=== PATIENT | female | born 1950 | race Caucasian/White ===

== ENCOUNTER → 2016-12-31 | Outpatient (CLI) | payer OTHER ==
[~2016-12-31] MED LIST: /WARF25TA OR; ACET65TA OR; ASPI81TA83 OR; CITRACAL + D3 PO; FISHCAP PO; HYDR25TA6 OR; LOPR50TA OR; METOPROLOL TARTRATE PO; OSTEOBIFLEX PO; PERC5TAB8 OR; PRAV20TA2 OR; VITAMIN D PO
--- NOTE | 2016-12-31 12:58 | REPMRS ---
Patient History The patient states she had a clinical breast exam in October 2016. Patient is postmenopausal and has history of other cancer at age 63. Family history of unknown cancer in sister, colorectal cancer in maternal grandmother at age 50 or over, and unknown cancer in brother. Took hormonal contraceptives for 2 months. Digital Mammo Screening Bilat: December 31, 2016 - Exam #: [id number] Bilateral CC and MLO view(s) were taken. Technologist: Eri Hassan, Technologist Prior study comparison: December 29, 2014, digital woman screen mammo, performed at [facility]. October 16, 2013, left breast digital mammo diagnostic unilateral performed at [facility]. FINDINGS: There are scattered fibroglandular densities. There is a fairly symmetric fibroglandular pattern in both breasts. There has been no interval development of masses, areas of architectural distortion or clusters of microcalcifications typical of malignancy. ASSESSMENT: BI-RADS/ACR category 2 mammogram. Benign finding(s). Recommendation Routine screening mammogram of both breasts in 1 year (for women over age 40). This mammogram was interpreted with the aid of an FDA-approved computer-aided dectection system. Electronically Signed By: Fritz Srinivasan MD 12/31/16 0881
== END ==
LOC: M RAD 11:37
PROVIDERS: ATTEND Obstetrics & Gynecology
DX: Z12.31 Encounter for screening mammogram for malignant neoplasm of breast (principal); Z78.0 Asymptomatic menopausal state; Z85.9 Personal history of malignant neoplasm, unspecified; Z80.0 Family history of malignant neoplasm of digestive organs; Z92.0 Personal history of contraception

== ENCOUNTER → 2022-04-02 | Outpatient (REF) | payer MEDICARE ==
[~2022-04-02] MED LIST changes: -/WARF25TA OR; +COUM1TAB18 OR
== END ==
LOC: M PLALAB 13:42
PROVIDERS: ATTEND Nurse Practitioner Family
DX: Z85.42 Personal history of malignant neoplasm of other parts of uterus (principal)
CPT/HCPCS: 87624; G0123

== ENCOUNTER → 2022-07-02 | Outpatient (REF) | payer MEDICARE | LOC: M PLALAB 13:20 | PROVIDERS: ATTEND Nurse Practitioner Family | DX: Z12.4 Encounter for screening for malignant neoplasm of cervix (principal); Z85.42 Personal history of malignant neoplasm of other parts of uterus; N95.2 Postmenopausal atrophic vaginitis | CPT/HCPCS: 87624; G0123 ==

== ENCOUNTER → 2022-10-22 | Outpatient (REF) | payer MEDICARE | LOC: M PLALAB 12:34 | PROVIDERS: ATTEND Nurse Practitioner Family | DX: Z85.42 Personal history of malignant neoplasm of other parts of uterus (principal); N95.2 Postmenopausal atrophic vaginitis; Z77.9 Other contact with and (suspected) exposures hazardous to health ==

== ENCOUNTER → 2023-01-23 | Outpatient (REF) | payer MEDICARE | LOC: M SFHCWAGY 15:32 | PROVIDERS: ATTEND Nurse Practitioner Family | DX: Z12.4 Encounter for screening for malignant neoplasm of cervix (principal); Z85.42 Personal history of malignant neoplasm of other parts of uterus; N95.2 Postmenopausal atrophic vaginitis | CPT/HCPCS: 87624; G0123 ==

== ENCOUNTER → 2023-04-29 | Outpatient (REF) | payer MEDICARE | LOC: M SFHCWAGY 17:54 | PROVIDERS: ATTEND Nurse Practitioner Family | DX: Z12.4 Encounter for screening for malignant neoplasm of cervix (principal); N95.8 Other specified menopausal and perimenopausal disorders | CPT/HCPCS: 87624; G0123 ==

== ENCOUNTER → 2024-01-29 | Outpatient (REF) | payer MEDICARE ==
[2024-01-31 17:48] LABS: HPV APTIMA Not Detected (Not Detected)
== END ==
LOC: M SFHCWAGY 17:22
PROVIDERS: ATTEND Nurse Practitioner Family
DX: Z12.72 Encounter for screening for malignant neoplasm of vagina (principal)
CPT/HCPCS: 87624; G0123